=== PATIENT | female | born 1945 | race Hispanic/Latino ===

== ENCOUNTER → 2019-06-19 | Outpatient (CLI) | payer OTHER | END | disposition home or self-care (01) | LOC: RAH 13:50 | PROVIDERS: ATTEND Podiatrist | DX: E11.621 Type 2 diabetes mellitus with foot ulcer (principal); E11.51 Type 2 diabetes mellitus with diabetic peripheral angiopathy without gangrene | CPT/HCPCS: 93922 ==

== ENCOUNTER → 2020-12-15 | Outpatient (CLI) | payer OTHER | END | disposition home or self-care (01) | LOC: SHCH 10:58 | PROVIDERS: ATTEND Internal Medicine Cardiovascular Disease | DX: I87.2 Venous insufficiency (chronic) (peripheral) (principal) | CPT/HCPCS: 93970 ==

== ENCOUNTER → 2024-12-11 | Outpatient (CLI) | payer OTHER, MEDICARE ==
[~2024-12-11] MED LIST: ACET-2247 PO; APIX5TAB PO; ATOR10 PO; CLON0.1T PO; ESCI10TA PO; FLUT16H NS; FURO20TA4 PO; HYDR25TA67 PO; INSU100I24 SQ; LOSA50TA64 PO; METF-446 PO; OMEP20CA12 PO; ONDA-243 PO; PREG75CA76 PO; VERA120T92 PO
--- NOTE | 2024-12-13 20:57 | HMCIMG ---
EXAM: MR Cervical Spine Without Intravenous Contrast. CLINICAL HISTORY: Pain. TECHNIQUE: Magnetic resonance images of the cervical spine in multiple planes. CONTRAST: None. COMPARISON: None. FINDINGS: The imaged posterior fossa is unremarkable. The craniocervical junction is intact. No acute fracture. Normal lordotic curvature. Multilevel spondylosis is evident by marginal osteophytes and facet joint arthropathy. Multilevel disc desiccation noted. Mild degenerative disc height reduction at the C4-C5 and C5-C6 levels. Normal vertebral body and remaining disc heights. Normal marrow signal of the vertebrae. The cervical cord is in an anatomic location. No abnormal signal involves the cord. No extra-axial masses. The surrounding soft tissues are unremarkable. Level by level, disease is present as follows: C1-C2: No osteoarthritis. C2-C3: No disc bulge or herniation. No neural foraminal, lateral recess, or spinal canal stenosis. C3-C4: No disc bulge or herniation. No neural foraminal, lateral recess, or spinal canal stenosis. C4-C5: 2 mm disc osteophyte complex bulge causing mild indentation on the anterior thecal sac. No neural foraminal or lateral recess stenosis. C5-C6: 2 mm disc osteophyte complex bulge causing mild indentation on the anterior thecal sac and mild bilateral foraminal narrowing. No lateral recess stenosis. C6-C7: 2 mm disc osteophyte complex bulge causing mild indentation on the anterior thecal sac. No neural foraminal or lateral recess stenosis. C7-T1: No disc bulge or herniation. No neural foraminal, lateral recess, or spinal canal stenosis. IMPRESSION: Limited evaluation possible due to the motion artifacts. Mild multilevel spondylosis. Mild degenerative disc height reduction at the C4-C5 and C5-C6 levels. Mild indentation on the anterior thecal sac at the C4-C5 and C6-C7 levels. Mild indentation on the anterior thecal sac and mild bilateral foraminal narrowing at the C5-C6 level. /[place]
--- NOTE | 2024-12-13 20:58 | HMCIMG ---
EXAM: MR Thoracic Spine Without Intravenous Contrast. CLINICAL HISTORY: Pain. TECHNIQUE: Magnetic resonance images of the thoracic spine in multiple planes. CONTRAST: None. COMPARISON: None. FINDINGS: The cervicothoracic and thoracolumbar junction is intact. No acute fracture. Mild dextroscoliosis. Exaggerated thoracic kyphosis. Multilevel spondylosis is evident by marginal osteophytes and facet joint arthropathy. Multilevel disc desiccation and degenerative disc height reduction noted. Normal vertebral body heights. Normal marrow signal of the vertebrae. The thoracic cord is in an anatomic location without abnormal signals. No abnormal extra-axial masses are present. The prevertebral and paravertebral soft tissues are within normal limits. [id number] findings are as follows: C7-T1: No disc bulge or herniation. No neural foraminal, lateral recess, or spinal canal stenosis. T1-T2: No disc bulge or herniation. No neural foraminal, lateral recess, or spinal canal stenosis. T2-T3: No disc bulge or herniation. No neural foraminal, lateral recess. or spinal canal stenosis. T3-T4: No disc bulge or herniation. No neural foraminal, lateral recess, or spinal canal stenosis. T4-T5: No disc bulge or herniation. No neural foraminal, lateral recess, or spinal canal stenosis. T5-T6: No disc bulge or herniation. No neural foraminal, lateral recess, or spinal canal stenosis. T6-T7: No disc bulge or herniation. No neural foraminal, lateral recess, or spinal canal stenosis. T7-T8: No disc bulge or herniation. No neural foraminal, lateral recess, or spinal canal stenosis. T8-T9: No disc bulge or herniation. No neural foraminal, lateral recess, or spinal canal stenosis. T9-T10: No disc bulge or herniation. No neural foraminal, lateral recess, or spinal canal stenosis. T10-T11: No disc bulge or herniation. No neural foraminal, lateral recess, or spinal canal stenosis. T11-T12: No disc bulge or herniation. No neural foraminal, lateral recess, or spinal canal stenosis. T12-L1: No disc bulge or herniation. No neural foraminal, lateral recess, or spinal canal stenosis. IMPRESSION: Limited evaluation possible due to the motion artifacts. Mild dextroscoliosis. Exaggerated thoracic kyphosis. Mild multilevel spondylosis and degenerative disc changes. /[place]
== END | disposition home or self-care (01) ==
LOC: RAH 08:37
PROVIDERS: ATTEND Neuromusculoskeletal Medicine & OMM
DX: M47.813 Spondylosis without myelopathy or radiculopathy, cervicothoracic region (principal); M48.02 Spinal stenosis, cervical region; M50.323 Other cervical disc degeneration at C6-C7 level; M50.322 Other cervical disc degeneration at C5-C6 level; M50.321 Other cervical disc degeneration at C4-C5 level; M41.84 Other forms of scoliosis, thoracic region; M48.8X2 Other specified spondylopathies, cervical region; M25.78 Osteophyte, vertebrae; M54.6 Pain in thoracic spine; R29.898 Other symptoms and signs involving the musculoskeletal system
CPT/HCPCS: 72141; 72146